=== PATIENT | male | born 1965 | race African-American/Black ===

== ENCOUNTER 2016-08-18 16:24 | Emergency (ER) | payer MEDICAID ==
[~2016-08-18] VITALS: Ht 175.3 cm; Wt 80.0 kg
[2016-08-18] MEDS ORDERED: SODIUM CHLORIDE 0.9% 1,000 ML IV ONE (17:08)
[2016-08-18 18:02] LABS: BASOPHILS % 0.6 % (0.0-2.0); EOSINOPHILS % 0.6 % (0.0-5.0); HEMATOCRIT. 44.7 % (42.0-52.0); HEMOGLOBIN. 15.1 g/dL (14.0-18.0); LYMPHOCYTES % 41.3 % (20.0-50.0); MEAN CORPUSCULAR HEMOGLOBIN 33.7 pg (28.0-32.0); MEAN CORPUSCULAR HGB CONC 33.8 g/dL (31.0-37.0); MEAN CORPUSCULAR VOLUME 99.6 fL (80.0-94.0); MEAN PLATELET VOLUME 9.8 fl (7.4-10.4); MONOCYTES % 5.6 % (2.0-8.0); NEUTROPHILS % 51.9 % (40.0-76.0); PLATELET 105 x1000/uL (130-400); RED BLOOD CELL COUNT 4.48 mill/uL (4.7-6.1); RED CELL DISTRIBUTION WIDTH 13.5 % (11.6-14.6); WHITE BLOOD COUNT 5.1 x1000/uL (4.5-11.0)
[2016-08-18 18:08] LABS: ANION GAP 13; CALCIUM 7.5 mg/dL (8.5-10.1); CARBON DIOXIDE 28 mEq/L (21-32); CHLORIDE 111 mEq/L (98-107); INDEX HEMOLYSI 1 (1-3); INDEX ICTERIC 1 (1-4); INDEX LIPEMIC 1 (1-3); MAGNESIUM 2.1 mg/dL (1.8-2.4); UREA NITROGEN BLOOD 11 mg/dL (7-21)
[2016-08-18 18:11] LABS: ACETAMINOPHEN < 2 ug/mL (10-30); eGFR > 60 mL/min (>60)
[2016-08-18 18:29] LABS: ETHANOL BLOOD 351 mg/dL
[2016-08-18] MEDS ORDERED: FOLIC ACID 1 MG, THIAMINE HCL 100 MG, MVI, ADULT NO.1 10 ML in DEXTROSE 5% WATER 1,000 ML IV ONE ×4 (20:00)
[2016-08-18 20:50] LABS: *AMPHETAMINES SCREEN URINE NEGATIVE (NEGATIVE); *BARBITURATES SCREEN URINE NEGATIVE (NEGATIVE); *BENZODIAZEPINES SCREEN URINE NEGATIVE (NEGATIVE); *COCAINE SCREEN URINE NEGATIVE (NEGATIVE); CANNABINOID URINE SCREEN NEGATIVE (NEGATIVE); ECSTASY MDMA SCREEN URINE CONF.TEST INDICATED (NEGATIVE); METHADONE URINE SCREEN NEGATIVE (NEGATIVE); OPIATES URINE SCREEN NEGATIVE (NEGATIVE); PHENCYCLIDINE URINE SCREEN NEGATIVE (NEGATIVE)
[2016-08-18] MEDS ORDERED: ACETAMINOPHEN 325MG TABLET PO ONE (23:15)
[2016-08-18] MEDS ORDERED: CEPHALEXIN 500MG CAPSULE PO ONE (23:15)
[2016-08-19] MEDS ORDERED: IBUPROFEN 600MG TABLET PO ONE (07:15)
[2016-08-19] MEDS ORDERED: KETOROLAC 30MG/ML VIAL IV ONE (08:45)
[2016-08-19 11:05] VITALS: BP 122/68
== END 2016-08-19 11:07 | disposition home or self-care (01) ==
LOC: ER 16:39
DX: T51.8X1A Toxic effect of other alcohols, accidental (unintentional), initial encounter (principal); G92 Toxic encephalopathy; Y92.89 Other specified places as the place of occurrence of the external cause; Y90.8 Blood alcohol level of 240 mg/100 ml or more
CPT/HCPCS: 36415; 80048; 80305; 80329; 83735; 85025; 96361; 96365; 96366; 99285; G0482; J1885; J3411; J3490; J7030; J7070; Z7610; 80307

== ENCOUNTER 2021-07-28 04:31 | Emergency (ER) | payer MEDICAID ==
[~2021-07-28] VITALS: Ht 172.7 cm; Wt 73.0 kg
[2021-07-28] MEDS ORDERED: MAGNESIUM/ALUMINUM HYDROXIDE/SIMETHICONE 30ML UDC PO STA (05:24)
[2021-07-28] MEDS ORDERED: METOCLOPRAMIDE HCL 10MG/2ML VIAL IV STA (05:24)
[2021-07-28] MEDS ORDERED: ONDANSETRON HCL 4MG/2ML INJ IV STA (05:24)
[2021-07-28 06:36] LABS: BASOPHILS % 0.2 % (0.0-2.0); EOSINOPHILS % 0.4 % (0.0-5.0); HEMATOCRIT. 43.9 % (42.0-52.0); HEMOGLOBIN. 15.3 g/dL (14.0-18.0); LYMPHOCYTES % 11.8 % (20.0-50.0); MEAN CORPUSCULAR HEMOGLOBIN 34.9 pg (28.0-32.0); MEAN CORPUSCULAR VOLUME 100.6 fL (80.0-94.0); MEAN PLATELET VOLUME 10.9 fl (7.4-10.4); NEUTROPHILS % 82.6 % (40.0-76.0); PLATELET 100 x1000/uL (130-400); RED BLOOD CELL COUNT 4.37 mill/uL (4.7-6.1); RED CELL DISTRIBUTION WIDTH 14.3 % (11.6-14.6)
[2021-07-28 06:40] LABS: CHLORIDE 108 mEq/L (98-107)
[2021-07-28] MEDS ORDERED: SODIUM CHLORIDE 0.9% 1,000 ML IV ONE (06:45)
[2021-07-28 06:47] LABS: ETHANOL BLOOD < 10 mg/dL
[2021-07-28] MEDS: ARIPIPRAZOLE 5MG TABLET PO SCH (12:12)
[2021-07-28] MEDS ORDERED: SULFAMETHOXAZOLE/TRIMETHOPRIM 800/160MG TABLET PO ONE (15:00)
[2021-07-28 16:58] LABS: CLARITY URINE CLEAR (CLEAR); COLOR URINE ORANGE (YELLOW); KETONES URINE NEGATIVE (NEGATIVE); LEUKOCYTE ESTERASE URINE TRACE (NEGATIVE); NITRITE URINE POSITIVE (NEGATIVE); OCCULT BLOOD URINE NEGATIVE (NEGATIVE); PH URINE 5.5 (4.5-8.0); PROTEIN URINE NEGATIVE (NEGATIVE); SPECIFIC GRAVITY URINE 1.024 (1.005-1.030)
[2021-07-28 17:11] LABS: *AMPHETAMINES SCREEN URINE NEGATIVE (NEGATIVE); *BARBITURATES SCREEN URINE NEGATIVE (NEGATIVE)
[2021-07-28 17:12] LABS: *BENZODIAZEPINES SCREEN URINE NEGATIVE (NEGATIVE); *COCAINE SCREEN URINE NEGATIVE (NEGATIVE); CANNABINOID URINE SCREEN NEGATIVE (NEGATIVE); METHADONE URINE SCREEN NEGATIVE (NEGATIVE); OPIATES URINE SCREEN NEGATIVE (NEGATIVE); PHENCYCLIDINE URINE SCREEN NEGATIVE (NEGATIVE)
[2021-07-28] MEDS: DIVALPROEX SODIUM 250MG DR TABLET PO SCH (21:00)
[2021-07-28] MEDS ORDERED: QUETIAPINE FUMARATE 25MG TABLET PO SCH (21:00)
[2021-07-28] MEDS: TRAZODONE HCL 50MG TABLET PO SCH (21:00)
[2021-07-29] MEDS ORDERED: SULFAMETHOXAZOLE/TRIMETHOPRIM 800/160MG TABLET PO SCH ×2 (08:30→20:30)
[2021-07-29] MEDS: ARIPIPRAZOLE 5MG TABLET PO SCH (09:40)
[2021-07-29] MEDS: DIVALPROEX SODIUM 250MG DR TABLET PO SCH ×2 (09:40→22:59)
[2021-07-29] MEDS: TRAZODONE HCL 50MG TABLET PO SCH (23:00)
[2021-07-30] MEDS: ARIPIPRAZOLE 5MG TABLET PO SCH (09:00)
[2021-07-30 10:00] VITALS: BP 128/85
[2021-07-30] MEDS: DIVALPROEX SODIUM 250MG DR TABLET PO SCH (10:13)
[2021-07-30] MEDS ORDERED: CEPH500T MT (12:31)
[2021-07-30] MEDS ORDERED: QUETIAPINE FUMARATE 50MG TABLET PO SCH (21:00)
== END 2021-07-30 13:20 | disposition home or self-care (01) ==
LOC: ER 04:31
DX: U07.1 COVID-19 (principal); R45.851 Suicidal ideations; N39.0 Urinary tract infection, site not specified; I10 Essential (primary) hypertension; Z98.890 Other specified postprocedural states; Z86.59 Personal history of other mental and behavioral disorders
CPT/HCPCS: 36415; 71045; 74176; 80053; 80305; 80307; 80320; 80329; 81003; 83605; 83690; 83880; 84443; 84484; 85025; 87426; 93005; 96361; 96374; 96375; 99285; C9803; J2405; J2765; J7030; U0003; U0005; G0480